=== PATIENT | female | born 1965 | race Caucasian/White ===

== ENCOUNTER 2017-01-20 09:11 | Day surgery (SDC) | payer OTHER ==
[~2017-01-20] VITALS: Ht 172.7 cm; Wt 65.8 kg
[~2017-01-20 09:11] MED LIST: 0.9% Sodium Chloride 1,000 ML IV SCH; CALC600T12 PO; ESCI20TA38 PO; ESTR1PAT81 TRANSDERM; IMI100 PO; OMEG-38 PO; PROG10PO3 VAGINAL; Sodium Chloride LOK Flush 10 mL Syringe IV PRN; fentaNYL-PF 50 mCg/mL 2 mL Inj IVPUSH PRN
[2017-01-20 09:31] VITALS: BP 93/53; PULSE 51; RESP 12; O2SAT 100
[2017-01-20 10:21] VITALS: BP 115/62; PULSE 59; RESP 16; O2SAT 99
[2017-01-20 10:30] VITALS: BP 96/61; PULSE 60; RESP 16; O2SAT 98
[2017-01-20 10:39] VITALS: BP 97/66; PULSE 69; RESP 16; O2SAT 99
--- NOTE | 2017-01-20 10:49 | ENDO ---
[address] [address] ENDOSCOPY PROCEDURE PATIENT: PAKO KNAPP : 1965 MR#: [id number] ADMIT: 01/20/2017 JOB ID: [id number] DATE: 01/20/2017 PRIMARY PROVIDER: Luis Fernando Hernandez M.D. PROCEDURE: Colonoscopy with cold forceps polypectomy. INDICATIONS: A 51-year-old female who reports for colon cancer screening. Her sister has a history of colon polyps. EQUIPMENT: PCF H 180 AL. SEDATION: 1. 6 mg Versed. 2. 150 mcg fentanyl. COMPLICATIONS: None identified. BOWEL PREPARATION: Fair, adequate examination. PROCEDURAL INFORMATION: After the risks and benefits were explained, written and verbal informed consent was obtained. The patient was brought into the endoscopy suite and placed into the left lateral decubitus position. Sedation was achieved using the above-stated medications with the addition of oxygen via nasal cannula. Digital rectal examination was accomplished and did not elicit any obvious anorectal pathology. The scope was introduced into the rectum and advanced to the cecum as identified by the appendiceal orifice and ileocecal valve. The scope was slowly withdrawn to carefully examine the mucosa for any defects or lesions. Multiple direct views were made through the dentate line for exclusion of pathology. The colon was decompressed. The scope removed from the patient who tolerated the procedure well. FINDINGS: In the ascending colon, there was a diminutive 3-4 mm polyp removed with cold forceps. The patient had a challenging navigation but otherwise from a mucosal standpoint no significant pathology was appreciated throughout. ENDOSCOPIC DIAGNOSES: Diminutive ascending colon polyp. RECOMMENDATIONS: 1. Await histopathology. 2. Repeat colonoscopy five years.
--- NOTE | 2017-01-21 17:06 | PATH ---
SURGICAL PATHOLOGY Attending Physician:Alicia Whittington CASE STATUS: Signed Out PATIENT NAME: PAKO KNAPP PID: [id number] : 1965 DATE COLLECTED:01/20/2017 15:15 SPECIMEN: Colon, Polyp CLINICAL HISTORY: 1. ASCENDING COLON POLYP X1 FINAL DIAGNOSIS: 1.ASCENDING COLON, POLYP, BIOPSY: TUBULAR ADENOMA; NEGATIVE FOR HIGH-GRADE DYSPLASIA. ICD10 K63.5 GROSS DESCRIPTION: The specimen is received in one formalin filled container labeled with the patient's name, sublabeled "ascending colon polyp" and consists of a 0.4 x 0.3 x 0.2 CM portion of tissue which is entirely submitted in one cassette. 01/20/2017 DAC MICRO DESCRIPTION: See diagnosis. ICD-9 CODES: CPT CODES: 1: 99019 Electronically Signed Out Shelley Amato MD [facility] [address], [place] [address] Technical component performed at [facility], [facility] [address], [place], [address]
== END 2017-01-20 23:59 | disposition home or self-care (01) ==
LOC: END 09:11
PROVIDERS: ATTEND Internal Medicine Gastroenterology
DX: Z12.11 Encounter for screening for malignant neoplasm of colon (principal); D12.2 Benign neoplasm of ascending colon; Z83.71 Family history of colonic polyps; F41.1 Generalized anxiety disorder; Z15.01 Genetic susceptibility to malignant neoplasm of breast; G43.709 Chronic migraine without aura, not intractable, without status migrainosus
CPT/HCPCS: 45380; 99153; G0500; J2250; J3010; J7030

== ENCOUNTER → 2017-04-08 | Day surgery (SDC) | payer OTHER ==
[2017-04-08] VITALS (11 sets, daily range): BP systolic 98–106; BP diastolic 55–68; PULSE 55–68; RESP 10–16; O2SAT 97–100
[~2017-04-08] VITALS: Ht 175.3 cm; Wt 66.7 kg
[~2017-04-08] MED LIST changes: -0.9% Sodium Chloride 1,000 ML IV SCH; +Bacitracin 50,000 unit Inj IRRIGATION ONE; +CALC-3 PO; -CALC600T12 PO; +Clindamycin Inj 900 MG in IV Premix 1 EACH IV ONE; +DOCO1CAP3 PO; +Dexamethasone 4 mg/mL Inj IVPUSH PRN; +Dexamethasone 4 mg/mL Inj ONE; +EPHEDrine Sulfate 50 mg/mL Inj IVPUSH PRN; +ESCI20TA PO; -ESCI20TA38 PO; +ESTR1PAT44 TRANSDERM; -ESTR1PAT81 TRANSDERM; +Glycopyrrolate 0.2 MG/ML 1mL Inj ONE; +HYDROcodone-APAP 10-325 mg PO PRN; +HYDROmorphone 0.5 mg/0.5 mL iSecure Syringe ONE; +HYDROmorphone 1 mg/mL Inj IVPUSH PRN; -IMI100 PO; +Lactated Ringer's 1,000 ML IV ONE; +Lactated Ringer's 1,000 ML IV SCH; +Lactated Ringer's 500 ML IV PRN; +MULT-1018 PO; +MetoCLOpramide 5 mg/mL 2 mL Inj IVPUSH PRN; -OMEG-38 PO; +Ondansetron 2 mg/mL 2 mL Inj IVPUSH PRN; +Ondansetron 2 mg/mL 2 mL Inj ONE; -PROG10PO3 VAGINAL; +Phenylephrine 10,000 mCg/mL Inj IVPUSH PRN; +Phenylephrine/NS 100 mCg/mL 10 mL Syringe IVPUSH ONE; +Propofol 10,000 mCg/mL 20 mL Inj ONE; +Rocuronium 10 mg/mL 5 mL Inj ONE; -Sodium Chloride LOK Flush 10 mL Syringe IV PRN; +fentaNYL-PF 50 mCg/mL 2 mL Inj ONE
--- NOTE | 2017-04-08 08:23 | PCM.HPANE ---
Patient Data Date of Service: Apr 08, 2017 Surgeon Admitting Provider: Attending Provider:Clifton Rider MD Primary Care Physician:Luis Fernando Hernandez MD Other Provider:Tyesha Trujillo Anesthesia Reason for Visit Brca Gene Positive,Breast Reconstruction Deformity Ht/WT & BMI Height (Feet): 5 Height (Inches): 9.00 Weight (Kilograms): 66.680 Body Mass Index 21.00 Allergies Coded Allergies: No Known Drug Allergies (Verified Allergy, Unknown, 02/24/17) Past Anesthesia History Anesthesia History: Denies:: Abnormal Airway, Anesthesia Reactions, Difficult Intubation, Fam Anesthesia Reaction, Fam Malignant Hypertherm, Malignant Hyperthermia Diabetes History Hx Diabetes?: No MRSA MRSA: No Medications Hypertension Medication: No Home Meds Incl Beta Saman: No Reported Medications Multivitamin (Multi Vitamin Daily)1 Each Tablet1 Each PO DAILY 30 Days Ref 0 02/24/17 Escitalopram Oxalate (Lexapro)20 Mg [id number] Mg PO DAILY 30 Days Ref 0 02/24/17 Docosahexanoic Acid/Epa (Fish Oil Concentrate Softgel)1 Each Capsule1 Each PO DAILY 02/24/17 Estradiol Patch (Susan)1 Each Patch.tdswUnknown Dose TRANSDERM 2xweekly 02/24/17 Calcium Carbonate/Vitamin D3 (Calcium 500+D Tablet Chew)1 Each Tab.chew1 Each PO DAILY 02/24/17 History History of ENT Problems?: No HEENT History: Denies:: Abnormal Airway Cataracts Difficult Intubation Glaucoma Hearing Problem Denture Type: None Teeth Condition: Within Normal Limits Hx of Heart Problems?: No Cardiovascular History: Denies:: AICD Atrial Fibrillation Edema Heart Murmur Hypertension Irregular Heartbeat Pacemaker Peripheral Vascular Rheumatic Fever Thrombophlebitis Hx of Respiratory Problem?: No Respiratory History: Denies:: Asthma COPD Emphysema Oxygen Administration Pneumonia Tuberculosis Use of C-PAP Machine Hx Neurologic Problems?: No Neurological History: Denies:: CVA Headaches (prior hx of ) Multiple Sclerosis Parkinson's Disease Seizures Hx of GI Problems?: No Hx of Problems?: No Genitourinary History: Denies:: Kidney Stones Urinary Tract Infection Female Hx: Positive for:: Problems with Breasts? (brca +- hx of prior mastectomy with reconstruction) Denies:: Currently (david oopherectomy) Skin History: Denies:: History Skin Disorders? Pressure Ulcers Hx Musculoskeletal Problems?: No Musculoskeletal History: Denies:: Back Injury Degenerative Joint Fibromyalgia Joint Replacement Musculoskeletal Trauma Myasthenia Gravis Osteoarthritis Rheumatoid Arthritis Hx of Psycho/Social Problems?: Yes Psycho Social History: Positive for:: Anxiety Hx Surgeries?: Yes (breast, mastecomy, ) Hx Any Other Health Problems?: Yes Other History: Positive for:: Cancer (breast brca+) Denies:: Thyroid Disease History Blood Transfusions: Positive for:: Accept Blood Products? Denies:: Blood Transfusions Hx Diabetes: No Hx Alcohol Use: YesAlcoholic Drinks Per Day: one drink daily Smoking Status: Former Smoker Have You Smoked inLast 12 mo: No Stop/Bang Treated for Sleep Apnea?: No Do You Have a CPAP Machine?: No S-Snoring: Do You Snore Loudly: No T-Tired: feel tired, fatigued: No O-Obsered: Observed not breath: No P-Blood Pressure: treated: No B- Body Mass Index > 35 kg/m2: No A- Age over 50: Yes N- Neck Large Circumference: No G- Gender Male: No DERECK Total Score: 1 DERECK Risk Assessment: Low Risk, <3 Yes Risk Assessment Category Category 1A: Patient has history of documented sleep apnea, and HAS NOT received any narcotic, sedative or anesthesia administration during this stay. Category 1B: Patient has history of documented sleep apnea, and HAS received any narcotic , sedative or anesthesia administration during this stay Category 2: Patient has SUSPECTED Obstructive Sleep Apnea, and HAS received any narcotic , sedative or anesthesia administration during this stay. Category 3: Patient has SUSPECTED Obstructive Sleep Apnea and HAS NOT received narcotic, sedative or anesthesia administration during this stay. Category 4: Outpatient in Procedural Areas with known sleep apnea or who screen positive for High Risk via the STOP/BANG questionnaire. Exam Exam Vital Signs Vital Signs Date Time Temp Pulse Resp B/P Pulse Ox O2 Delivery O2 Flow Rate FiO2 04/08/17 06:22 36.4 63 14 106/ 97 Room Air General Appearance: Alert, Oriented X3 HEENT/AIRWAY: MP 1 Lungs: Clear to Auscultation Heart: Exam Unremarkable Meds/Labs/Diagnostics Admission Meds Current Medications Lactated Ringer's (Lr) 1,000 ml @ ud STK-MED ONCE IV Last administered on 04/08t 06:28; Start 04/08/17 at 06:28; Stop 04/08/17 at 06:29; Status DC Plan Impression Patient chart reviewed, patient interviewed and anesthestic plan with risks, benefits, and alternatives discussed, and informed consent obtained. NPO per Anesth. Guidelines: Yes ASA Physical Status: ASA2 Mod Systemic Disease Anesthetic Plan: GA Bene/Risks/Altern/Consents: Yes HP Complete Prior to Induction: Yes Severiano Cid MD Apr 08, 2017 08:23
--- NOTE | 2017-04-08 11:31 | PCM.ANEP1 ---
Post Anesthesia PACU Phase 1 Assessment Vital Signs Vital Signs Date Time Temp Pulse Resp B/P Pulse Ox O2 Delivery O2 Flow Rate FiO2 04/08/17 11:25 36.3 55 11 99/61 97 Room Air 04/08/17 11:15 56 12 99/60 97 Room Air 04/08/17 11:11 36.0 58 12 99/57 97 Room Air 04/08/17 11:05 55 13 104/65 98 Room Air 04/08/17 11:00 58 13 100/68 100 Room Air 04/08/17 10:55 58 14 101/61 100 Room Air 04/08/17 10:50 58 13 104/62 100 Nasal Cannula 2 04/08/17 10:46 36.5 58 10 106/63 100 Nasal Cannula 2 04/08/17 06:22 36.4 63 14 106/ 97 Room Air Anesthetic Administered: GA Level of Alertness: Sleepy, easy to arouse Pain: Yes Pain Scale Score: 5 Nausea or Vomiting: No CV Function & Hydration Stable: Yes Airway Device: Oxygen Delivery: Nasal Cannula Lungs: Clear to Auscultation PACU Phase 2 Assessment Patient Instructions Provided: Yes Severiano Cid MD Apr 08, 2017 11:31
--- NOTE | 2017-04-09 17:18 | OP ---
[address] [address] OPERATIVE REPORT PATIENT: PAKO KNAPP : 1965 MR#: [id number] ADMIT: 04/08/2017 JOB ID: [id number] DATE OF SURGERY: 04/08/2017 SURGEON: Clifton Rider MD COMMUNICABLE DISEASE SPECIALIST: Negrito Obrien PA-C (present for necessary retraction, exposure, and closure). PREOPERATIVE DIAGNOSIS(ES): 1. BRCA positivity, status post bilateral mastectomies and reconstruction. 2. Post reconstruction breast deformity. 3. Excess abdominal skin. POSTOPERATIVE DIAGNOSIS(ES): 1. BRCA positivity, status post bilateral mastectomies and reconstruction. 2. Post reconstruction breast deformity. 3. Excess abdominal skin. PROCEDURE: 1. Removal of bilateral intact silicone implant. 2. Placement of bilateral silicone implant in immediate reconstruction. 3. Bilateral revision breast reconstruction. 4. Mini abdominoplasty. ANESTHESIA: General anesthesia. COMPLICATIONS: None apparent. ESTIMATED BLOOD LOSS: 30 cc. SPECIMEN: None. IMPLANT: Bilateral Allergan Inspira SRX 650 cc smooth round silicone implant. DRAINS: A #15 round Arron drain in the abdominal surgical site. INDICATIONS FOR PROCEDURE: This is a 51-year-old, female patient with a history of BRCA positivity. Patient previously had bilateral mastectomy with implant based reconstruction. Due to animation deformity, the implant removed to a subcutaneous pocket. The patient has significant visible rippling and malposition of the implants. At this point, revision reconstruction of bilateral breasts with removal of her previous implant and replacement with new implants as well as pocket and envelope revision are indicated. The patient also has excess lower abdominal skin and has elected to proceed with a mini abdominoplasty at the same time. PROCEDURES AND FINDINGS: The patient was identified in the preoperative area. Surgical site was marked. With patient in sitting position, I marked the patient's midline. The patient's inframammary folds were also marked. The patient's breast meridians were also marked. With patient in standing position, I also marked patient's midline on her lower abdomen. The patient was then taken back to the operating room and placed supine on the operating table. Appropriate time-outs were taken. General anesthesia was induced smoothly. The patient was then prepped and draped in the usual sterile manner. I first turned my attention to the breast. 3 cm of excess inferior pole skin was marked on each breast. I also marked a crescent to be excised above the nipple-areolar complex, both sides. The crescent was designed to race the nipple-areolar complex approximately 1-1.5 cm on each side. I first turned my attention to the periareolar skin excision. Incision was made at the border of the superior areolar boundary with normal skin. A second curvilinear incision was then made creating a crescent that is 1.5 cm in width that lies superior to the nipple-areolar complex. Incision was made down to the deep dermis. The area was then de-epithelialized. Once this had been done, the central portion of this crescent was further de-epithelialized more with a pair of Iris scissors until there was barely any dermis left in the central portion of this crescent. Once this has been done, the incision was reapproximated first with one 2-0 PDS deep dermal suture at the 12 o'clock position of the nipple-areolar complex to ensure a more long-lasting lip. Once this had been done, a layer of 3-0 Vicryl deep dermal sutures were then placed in the deep dermis. A layer of 3-0 Monocryl deep dermal sutures were then placed, followed by 4-0 Monocryl running subcuticular suture. This was done on both breasts. I then turned my attention to the right breast. Incision was made along the ellipse marking the excess inferior pole skin. Again, the ellipse lies with one limb just superior to the inframammary fold. The width of the ellipse was 3 cm. Again, incision was made with a #10 blade down to the mid dermis. This area was then de-epithelialized. A transverse incision was then made in the dermis down to the underlying periprosthetic capsule. Incision was then made through the periprosthetic capsule and patient's previous implants were removed. These were noted to be shaped and textured 475 cc implants. The pocket was then irrigated with copious amount of antibiotic solution. Once this had been done, I examined the pocket. I extended the pocket superiorly proximally to 3 cm in the superior medial aspect to make the pocket similar to the one on the left side. Once this had been done, an Allergan Inspire SRX 650 cc implant was then obtained. It was then rinsed in antibiotic solution and placed into the implant pocket. The previous capsule was then reapproximated with alternating 2-0 PDS simple interrupted sutures with 3-0 Vicryl simple interrupted sutures. The dermal incision was then reapproximated with a layer of 3-0 Vicryl simple running suture. The de-epithelialized portion of the skin was then reapproximated to each other with a layer of 3-0 Monocryl deep dermal suture, followed by 4-0 Monocryl running subcuticular suture. I then turned my attention to the left breast. In addition to replacing and removing the suture as well as de-epithelializing and imbricating the excess inferior tissue, I elected to also perform lateral capsulorrhaphy to medialize the implant. Again, the ellipse on the inferior aspect of the breast was incised and de-epithelialized. A transverse incision was then made within the ellipse through the dermis down to the periprosthetic capsule which was then incised. The allowed the implant to be removed. It is again a 475 cc textured shaped implant. The pocket was irrigated with antibiotic solution. Once this had been done, incision was made with electrocautery at the lateral aspect of the posterior capsule. One limb of the incision was made at the junction between the posterior anterior capsule laterally. Another incision was then made more medially on the posterior capsule. The width of the ellipse that was made was 1.5-2 cm. This piece of capsule was then removed. The two edges of the capsules were then reapproximated using several 2-0 PDS [id number] sutures. Once the capsule raphe was completed, an Allergan Inspire 650 SRX implant was obtained and rinsed in antibiotic solution. It was then placed into the implant pocket. Again, the capsule was repaired using alternating 2-0 PDS and 3-0 Vicryl [id number] sutures. The incision through the dermis was repaired with 3-0 Vicryl simple running suture. The de-epithelialized portion of the ellipse was then imbricated and the incision was reapproximated with a layer of 3-0 Monocryl deep dermal suture, followed by 4-0 Monocryl running subcuticular suture. I then turned my attention to her lower abdomen. The patient had a previous scar. A lower incision was then marked approximately 1.5 cm inferior to her scar. Care was taken to make sure this incision is 7.5 cm or more from the vulvar commissure. Incision was then transitioned into a curvilinear incision up to near the anterior ascending iliac spine. Care was taken to make sure the incision was quite even. Care was taken to make sure the incision stays low enough not to appear above the waist line. Incision was made with a #10 blade. Incision was then deepened down to the underlying fascia. I then elevated the soft tissue off of the underlying fascia from inferior to superior fashion to approximately 4 cm from the umbilicus. Once this has been done, the soft tissue was unfurled and extended inferiorly. Excess abdominal skin and fat was marked. The excess skin was then excised with electrocautery. Once this had been done, the incision was reapproximated first with a layer of 3-0 Vicryl [id number] sutures reapproximating the Racquel's fascia. A layer of 3-0 Monocryl deep dermal sutures were then placed. A #15 round Arron drain was then placed into the surgical pocket next to the fascia exiting through a central stab incision in the mons pubis. Once this had been placed and secured, the incision was then reapproximated with a layer of 3-0 Monocryl deep dermal suture, followed by 4-0 Monocryl running subcuticular suture. The patient tolerated the procedure well. Needle count, sponge count, instrument counts were correct at the end of the procedure. The patient was extubated and transported to recovery in stable condition.
== END | disposition home or self-care (01) ==
LOC: SAS 05:49
PROVIDERS: ATTEND Plastic Surgery
DX: Z15.01 Genetic susceptibility to malignant neoplasm of breast (principal); N65.0 Deformity of reconstructed breast; L91.9 Hypertrophic disorder of the skin, unspecified; F41.9 Anxiety disorder, unspecified; Z79.899 Other long term (current) drug therapy